=== PATIENT | male | born 1945 | race Caucasian/White ===

== ENCOUNTER 2022-08-09 06:43 | Emergency (ER) | payer MEDICARE, MEDICAID, SELFPAY ==
--- NOTE | ~2022-08-09 | CT_ITS ---
EXAMINATION: CT lumbar spine wo con DATE: 08/09/2022 07:12 INDICATION: Fall last evening. Previous back surgery. TECHNIQUE: Computed tomography (CT) of the lumbar spine was performed without intravenous contrast. A utomated exposure control and iterative reconstruction technique were employed. Exam dose: 1523.24 m Gy-cm total exam DLP. COMPARISON: None FINDINGS: Status post lumbar laminectomy. No fracture or bone destruction. There is grade 1 anterolisthesis at L4-5 due to degenerative changes at the apophyseal joints. There is pars interarticularis defect on the left at L4. There is degenerative spurring throughout the lowe r thoracic and lumbar spine. Lumbar interspaces are relatively preserved. The sacroiliac joints are intact.. IMPRESSION: Status post lumbar laminectomy Degenerative spurring of the lower thoracic and lumbar spine. Degenerative changes apophyseal joints with associated grade 1 anterolisthesis at L4-5. Left L4 pars intra-articular is defect No recent fracture is detected Reviewed, dictated and finalized at [facility] Reviewed, dictated and finalized at [facility]. TEGIC BU[employer]ER
[2022-08-09 06:45] VITALS: BP 117/57; PULSE 60; RESP 18; TEMP 36.5; O2SAT 97
--- NOTE | 2022-08-09 06:58 | ED.BACK ---
HPI - Back Pain/Injury General Chief Complaint: Back Pain/Injury Stated Complaint: back pain Time Seen by Provider: 08/09/22 06:57 Source: patient and RN notes reviewed Mode of arrival: ambulatory Limitations: no limitations History of Present Illness HPI Narrative: patient states he got up in the middle the night and tripped over the shoes that were nares bed falling onto his buttocks. He has pain in the right side of his back and his lumbar spine. He has a history of some previous surgery due to bulging discs. He did not take anything at home for his pain. MD elicited complaint: back injury Pertinent past history: prior back pain, recent trauma and back surgery Onset (ago): hour(s) (7) Timing: constant Severity: moderate Quality: dull and aching Location: lumbar spine Radiation: other (right hip) Exacerbating factors: movement and walking Relieving factors: other (rest) Context: fall Associated symptoms: denies other symptoms Work related injury: No Related Data Home Medications Medication Instructions Recorded Confirmed carbidopa 25 mg-levodopa 100 mg 1 tablet PO QID 08/09/22 08/09/22 tablet carbidopa ER 50 mg-levodopa 200 mg See Rx Instructions .Route .COMPLEX 08/09/22 08/09/22 tablet,extended release carvedilol 6.25 mg tablet 6.25 mg PO BID 08/09/22 08/09/22 celecoxib 200 mg capsule 200 mg PO DAILY 08/09/22 08/09/22 gabapentin 600 mg tablet 600 mg PO TID 08/09/22 08/09/22 glipizide 10 mg tablet, extended 10 mg PO DAILY 08/09/22 08/09/22 release 24 hr lisinopril 10 mg tablet 10 mg PO DAILY 08/09/22 08/09/22 metformin 1,000 mg tablet 1,000 mg PO BID 08/09/22 08/09/22 trazodone 50 mg tablet 50 mg PO HS 08/09/22 08/09/22 Allergies Allergy/AdvReac Type Severity Reaction Status Date / Time No Known Allergies Allergy Verified 08/09/22 06:58 Review of Systems Review of Systems: All systems reviewed & are unremarkable except as noted in HPI and below PMFSH Past Medical History Medical History (Updated 08/09/22 @ 08:47 by Marc Granados MD) Diabetes type 2, controlled Hypertension Parkinson's disease Social History Social History (Updated 08/09/22 @ 07:05 by Marc Granados MD) Smoking status: Former smoker Additional smoking assessment comments: quit 35 years ago Exam Const: General: healthy appearing, no acute distress and alert Nutritional Appearance: well nourished and obese morbidly obese Orientation/consciousness: patient oriented x3 Limitations: no limitations HENMT: Head: normal to inspection Ears: external ears normal Face/Nose/Sinus: Normal external nose present Face and sinus: normal facial exam Eyes: Conjunctivae: conjunctivae normal Pupils: Equal, round and reactive pupils present EOM: EOMs intact bilaterally Neck: Neck: normal visual inspection Resp: Effort & Inspection: normal respiratory effort Auscultation: clear to auscultation bilaterally Cardio: Rate: regular rate Rhythm: regular rhythm GI: GI Palp: Yes Soft to palpation and No Tenderness to palpation present (GI) Auscultation: normal bowel sounds Back/Spine/Pelvis: Cervical Spine: cervical ROM normal Thoracic/Lumbar Spine: pain with thoraco-lumbar ROM, paraspinal muscle tenderness on the right in the lower lumbar and lumbar spinal tenderness (Mild) at L3 and at L4 Skin: General skin exam: normal color Rashes: no rashes Neuro: General: patient oriented x3, moves all extremities, no focal motor deficits and CN's II-XI intact bilaterally Speech: normal speech Gait exam (Neuro): Normal gait present Extrem: General: normal to inspection and no clubbing, cyanosis or edema Psych: Mental Status: mental status grossly normal Affect: normal affect Attitude: cooperative Course Vital Signs Vital signs: Vital Signs Temperature 36.5 C 08/09/22 06:45 Pulse Rate 60 08/09/22 06:45 Respiratory Rate 18 08/09/22 06:45 Blood Pressure 117/57 L 08/09/22 06:45 Pulse Oximetry 97 08/09/22 06:45 O
[2022-08-09] MEDS: KETOROLAC 30 MG/ML VIAL (*BKC) IM (07:17)
[2022-08-09 08:40] VITALS: BP 123/78; PULSE 60; RESP 16; TEMP 36.7; O2SAT 99
== END 2022-08-09 08:50 | disposition home or self-care (01) ==
PROVIDERS: Emergency Provider Emergency Medicine; PCP Physician Assistant
DX: S39.012A Strain of muscle, fascia and tendon of lower back, initial encounter (principal); W01.0XXA Fall on same level from slipping, tripping and stumbling without subsequent striking against object, initial encounter; E11.9 Type 2 diabetes mellitus without complications; I10 Essential (primary) hypertension; G20 Parkinson's disease; Z87.891 Personal history of nicotine dependence
CPT/HCPCS: 72131; 96372; 99284; J1885

== ENCOUNTER 2023-05-04 20:07 | Emergency (ER) | payer MEDICARE, MEDICAID, SELFPAY ==
[2023-05-04 20:14] VITALS: BP 112/55; PULSE 80; RESP 16; TEMP 36.7; O2SAT 95
--- NOTE | 2023-05-04 20:39 | ED.RECABL ---
HPI - Recheck/Abnormal Lab/Rx General Chief Complaint: Recheck/Abnormal Lab/Rx Stated Complaint: Lab Draw Time Seen by Provider: 05/04/23 20:25 Source: patient and family Mode of arrival: ambulatory Limitations: no limitations History of Present Illness HPI narrative: patient is a 77-year-old male with known abnormal labs today. Patient was getting preop labs done and there were abnormal values that need to be rechecked and evaluated in the emergency room per the primary doctor. Initial visit (ago): hour(s) Symptoms since prior visit: no new symptoms Associated symptoms: none Related Data Home Medications Medication Instructions Recorded Confirmed carbidopa 25 mg-levodopa 100 mg 1 tablet PO QID 08/09/22 05/04/23 tablet carbidopa ER 50 mg-levodopa 200 mg See Rx Instructions .Route .COMPLEX 08/09/22 05/04/23 tablet,extended release carvedilol 6.25 mg tablet 6.25 mg PO BID 08/09/22 05/04/23 celecoxib 200 mg capsule 200 mg PO DAILY 08/09/22 05/04/23 gabapentin 600 mg tablet 600 mg PO TID 08/09/22 05/04/23 glipizide 10 mg tablet, extended 10 mg PO DAILY 08/09/22 05/04/23 release 24 hr lisinopril 10 mg tablet 10 mg PO DAILY 08/09/22 05/04/23 metformin 1,000 mg tablet 1,000 mg PO BID 08/09/22 05/04/23 trazodone 50 mg tablet 50 mg PO HS 08/09/22 05/04/23 aspirin 81 mg tablet,delayed 81 mg PO DAILY 02/25/23 05/04/23 release (Raiza Low Dose Aspirin) empagliflozin 10 mg tablet 10 mg PO DAILY 02/25/23 05/04/23 (Jardiance) furosemide 40 mg tablet 40 mg PO QAM 02/25/23 05/04/23 pravastatin 80 mg tablet 80 mg PO DAILY 02/25/23 05/04/23 ropinirole 1 mg tablet 1 mg PO BID 02/25/23 05/04/23 spironolactone 25 mg tablet 25 mg PO DAILY 02/25/23 05/04/23 Allergies Allergy/AdvReac Type Severity Reaction Status Date / Time No Known Allergies Allergy Verified 08/09/22 06:58 Review of Systems Review of Systems: All systems reviewed & are unremarkable except as noted in HPI and below Constitutional: Constitutional: Reports no additional constitutional complaints Eyes: Eyes: Reports no additional eye complaints ENT: Reports system reviewed and no additional complaints, except as documented Cardiovascular: Cardiovascular: Reports no additional cardiovascular complaints Respiratory: Respiratory: Reports no additional respiratory complaints Gastrointestinal: Gastrointestinal: Reports no additional gastrointestinal complaints Genitourinary: Genitourinary: Reports no additional male genitourinary complaints Musculoskeletal: Musculoskeletal: Reports no additional musculoskeletal complaints Integumentary/Breasts: Skin/Breast: Reports system reviewed and no additional complaints, except as docu Neurologic: Reports system reviewed and no additional complaints, except as documented Psychiatric: Psychiatric: Reports no additional psychiatric complaints Endocrine: Endocrine: Reports no additional endocrine complaints Hematologic/Lymphatic: Hematologic/Lymphatic: Reports no additional hematologic/lymphatic complaints Allergic/Immunologic: Allergic/Immunologic: Reports no additional allergic/immunologic complaints PMFSH Past Medical History Medical History Diabetes type 2, controlled Hypertension Lumbar radiculopathy Parkinson's disease Surgical History Surgical History Previous back surgery S/P triple vessel bypass Total knee replacement status Family History Family History Father Hypertension Heart disease Sibling Heart disease Hypertension Social History Social History Social History: Kale is not confident in filling out medical forms, his daughter filled them out for him. In the last 12 months, Kale has received assistance paying utility bills. Kale does not have an advanced directive or living w
--- NOTE | 2023-05-04 20:39 | PC.NURSE ---
2038-MANUFACTURING AREA MANAGER PRESENT AT BEDSIDE TO PERFORM LAB DRAW
[2023-05-04 20:49] LABS: Basophils Absolute Auto 0.07 K/mm3 (0.00-0.10); Basophils Percent Auto 0.7 % (0.0-1.0); Eosinophils Absolute Auto 0.12 K/mm3 (0.02-0.50); Eosinophils Percent Auto 1.2 % (1.0-6.0); Hematocrit 39.8 % (37.0-46.0); Immature Granulocyte Absolute 0.04 K/mm3 (0.00-0.00); Immature Granulocyte Percent A 0.4 % (0.0-0.0); Immature Platelet Fraction Pct 2.7 % (1.0-7.0); Lymphocytes Absolute Auto 2.86 K/mm3 (1.10-4.50); Lymphocytes Percent Auto 28.7 % (18.0-42.0); Mean Corpuscular HGB Conc 32.7 g/dL (32.0-36.0); Mean Corpuscular Hemoglobin 30.1 pg (27.0-31.0); Mean Corpuscular Volume 92.1 fL (78.0-102.0); Mean Platelet Volume 9.6 fl (8.7-11.0); Monocytes Absolute Auto 0.95 K/mm3 (0.10-0.90); Monocytes Percent Auto 9.5 % (2.0-11.0); Neutrophils Absolute Auto 5.9 K/mm3 (1.7-7.2); Neutrophils Percent Auto 59.5 % (50.0-70.0); Platelet Count Result 149 K/mm3 (150-420); Red Blood Count 4.32 M/mm3 (4.70-6.10); Red Cell Distribution Width 13.2 % (11.6-14.4)
[2023-05-04 21:03] LABS: Alanine Aminotransferase 11 U/L (16-63); Albumin Level 3.8 g/dL (3.4-5.0); Alkaline Phosphatase 126 U/L (46-116); Anion Gap 10 mmol/L (8-16); Aspartate Amino Transferase 16 U/L (15-37); Bilirubin,Total 0.7 mg/dL (0.00-1.00); Blood Urea Nitrogen 37 mg/dL (7-18); Carbon Dioxide 28 mmol/L (21-32); Chloride 101 mmol/L (98-108); Estimated CRCL calculation 36 ml/min; Estimated Glomerular Filt Rate 35; Glucose 95 mg/dL (70-99); Magnesium 1.6 mg/dL (1.8-2.4); Osmolality Calculated 296 mOsm/kg (285-295); Sodium 139 mmol/L (136-145)
[2023-05-04] MEDS: MAGNESIUM OXIDE 400 MG TABLET 800 MG PO (21:23)
[2023-05-04 21:30] VITALS: BP 99/54; PULSE 76; RESP 16; O2SAT 95
[2023-05-04] MEDS: SODIUM CHLORIDE 0.9% IV 1,000 ML 999 ML IV CONT (21:41)
[2023-05-04 21:45] VITALS: BP 104/64; PULSE 73; RESP 16; O2SAT 97
--- NOTE | 2023-05-04 21:57 | PC.NURSE ---
2130-PHYSICIAN AT BEDSIDE DISCUSSING RESULTS AND PLAN OF CARE WITH PT AND FAMILY. PHYSICIAN VERBAL ORDER TO CHANGE IVF AMOUNT FROM 1000CC TO 500CC DUE TO PT PMHX CHF.
== END 2023-05-04 22:23 | disposition home or self-care (01) ==
PROVIDERS: Emergency Provider Emergency Medicine
DX: N17.9 Acute kidney failure, unspecified (principal); E11.9 Type 2 diabetes mellitus without complications; I10 Essential (primary) hypertension; G20 Parkinson's disease; Z87.891 Personal history of nicotine dependence; Z79.82 Long term (current) use of aspirin; Z79.899 Other long term (current) drug therapy; Z79.84 Long term (current) use of oral hypoglycemic drugs
CPT/HCPCS: 36415; 80053; 83735; 85025; 85055; 96360; 99283; A9270; J7030

== ENCOUNTER 2023-05-06 12:31 | Outpatient (CLI) | payer MEDICARE, MEDICAID, SELFPAY ==
--- NOTE | ~2023-05-06 | XR_ITS ---
EXAMINATION: XR lumbar spine min 4V DATE: 05/06/2023 13:16 INDICATION: Lumbar pain and tenderness. Radiculopathy. TECHNIQUE: Standing AP and 3 lateral views in neutral, flexion and extension were obtained of the lum bar spine. COMPARISON: 08/09/2022 FINDINGS: L2-L5 laminectomies. 2-3 mm retrolisthesis L2 on L3 which remains unchanged with flexion and extensio n. 8 mm anterolisthesis L4 on L5 which is unchanged with flexion. Visualization of the posterior rehana in of the vertebral bodies is poor on the lateral extension view however the anterolisthesis of L4 on L5 subjectively appears to partially reduce. Vertebral body heights are normal. Mild disc height los s at L2-L3, L4-L5 and L5-S1. IMPRESSION: 1. Mild lumbar spondylosis with change of L2-L5 laminectomies. 2. 8 mm anterolisthesis L4 on L5 which is unchanged with flexion but which appears to partially reduc e with extension. Reviewed, dictated and finalized at [facility]. IMPRESSION: 1. Mild lumbar spondylosis with change of L2-L5 laminectomies. 2. 8 mm anterolisthesis L4 on L5 which is unchanged with flexion but which appe ars to partially reduce with extension.
== END 2023-05-06 12:32 | disposition home or self-care (01) ==
PROVIDERS: PCP Neurological Surgery; Visit Provider Neurological Surgery
DX: M47.26 Other spondylosis with radiculopathy, lumbar region (principal); M96.1 Postlaminectomy syndrome, not elsewhere classified
CPT/HCPCS: 72110

== ENCOUNTER 2023-08-27 18:37 | Emergency (ER) | payer MEDICARE, MEDICAID, SELFPAY ==
[2023-08-27] VITALS (23 sets, daily range): BP systolic 70–100; BP diastolic 40–55; PULSE 65–77; RESP 12–22; TEMP 36.2; O2SAT 95–100
--- NOTE | 2023-08-27 18:56 | ED.WEAKNESS ---
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 He has been feeling weak and dizzy. He checked his blood pressure home with 60s over 40s. Denies any chest pain or shortness of breath. Denies any urinary symptoms. Denies any nausea vomiting. The dizziness or lightheadedness only happens when he is standing up. On arrival his blood pressure here is improved 81/54. He says this happened in the past and he stopped his lisinopril for a few days and his blood pressure came back to normal. He is taking the lisinopril again. MD Complaint: generalized weakness (low BP at home 60s over 40s) Onset (ago): day(s) (1) Duration: intermittent Location: generalized Migration: none Severity: moderate Quality: dull Relieving factors: none Exacerbating factors: none Associated symptoms: other (dizzyness) Related Data Home Medications Medication Instructions Recorded Confirmed carbidopa 25 mg-levodopa 100 mg 1 tablet PO QID 08/09/22 08/27/23 tablet carbidopa ER 50 mg-levodopa 200 mg See Rx Instructions .Route .COMPLEX 08/09/22 08/27/23 tablet,extended release carvedilol 6.25 mg tablet 6.25 mg PO BID 08/09/22 08/27/23 celecoxib 200 mg capsule 200 mg PO DAILY 08/09/22 08/27/23 gabapentin 600 mg tablet 600 mg PO TID 08/09/22 08/27/23 glipizide 10 mg tablet, extended 10 mg PO DAILY 08/09/22 08/27/23 release 24 hr lisinopril 10 mg tablet 10 mg PO DAILY 08/09/22 08/27/23 metformin 1,000 mg tablet 1,000 mg PO BID 08/09/22 08/27/23 trazodone 50 mg tablet 50 mg PO HS 08/09/22 08/27/23 aspirin 81 mg tablet,delayed 81 mg PO DAILY 02/25/23 08/27/23 release (Raiza Low Dose Aspirin) empagliflozin 10 mg tablet 10 mg PO DAILY 02/25/23 08/27/23 (Jardiance) furosemide 40 mg tablet 40 mg PO QAM 02/25/23 08/27/23 pravastatin 80 mg tablet 80 mg PO DAILY 02/25/23 08/27/23 ropinirole 1 mg tablet 1 mg PO BID 02/25/23 08/27/23 spironolactone 25 mg tablet 25 mg PO DAILY 02/25/23 08/27/23 Allergies Allergy/AdvReac Type Severity Reaction Status Date / Time No Known Allergies Allergy Verified 08/09/22 06:58 Review of Systems Review of Systems: All systems reviewed & are unremarkable except as noted in HPI and below PMFSH Past Medical History Medical History (Updated 08/27/23 @ 19:40 by Marc Granados MD) Diabetes type 2, controlled Hypertension Lumbar radiculopathy Parkinson's disease Surgical History Surgical History (Updated 08/27/23 @ 18:59 by Marc Granados MD) H/O brain surgery Parkinson's stimulator Previous back surgery S/P triple vessel bypass Total knee replacement status Family History Family History Father Hypertension Heart disease Sibling Heart disease Hypertension Social History Social History Social History: Kale is somewhat confident in filling out medical forms, his daughter filled them out for him. In the last 12 months, Kale has received assistance paying utility bills. Kale does not have an advanced directive or living will. Kale awakens 1 to 2 times a night to urinate. He claims to have difficulty getting or maintaining an erection. Has not had a PSA blood test. Has not had an over 50 prostate exam. Kale declines currently using recreational or street drugs. Declines ever giving himself street drugs with a needle. Does not eat healthy or exercise regularly. Kale is over the age of 66 and experiences frequent falls. Declines being sexually active. Declines fearing for his life or having a history of abuse. Kale drinks 1 cup of coffee a day, 2-3 glasses of tea a day, and 1 can of
--- NOTE | 2023-08-27 19:12 | PC.NURSE ---
report to ragini carreno . all questions answered.
[2023-08-27 19:15] LABS: Basophils Absolute Auto 0.11 K/mm3 (0.00-0.10); Basophils Percent Auto 0.8 % (0.0-1.0); Eosinophils Absolute Auto 0.09 K/mm3 (0.02-0.50); Eosinophils Percent Auto 0.7 % (1.0-6.0); Hematocrit 39.8 % (37.0-46.0); Hemoglobin 13.1 g/dL (12.4-15.3); Immature Granulocyte Absolute 0.08 K/mm3 (0.00-0.00); Immature Granulocyte Percent A 0.6 % (0.0-0.0); Lymphocytes Absolute Auto 3.08 K/mm3 (1.10-4.50); Lymphocytes Percent Auto 22.7 % (18.0-42.0); Mean Corpuscular HGB Conc 32.9 g/dL (32.0-36.0); Mean Corpuscular Hemoglobin 29.7 pg (27.0-31.0); Mean Corpuscular Volume 90.2 fL (78.0-102.0); Mean Platelet Volume 9.6 fl (8.7-11.0); Monocytes Absolute Auto 1.18 K/mm3 (0.10-0.90); Monocytes Percent Auto 8.7 % (2.0-11.0); Neutrophils Percent Auto 66.5 % (50.0-70.0); Platelet Count Result 159 K/mm3 (150-420); Red Blood Count 4.41 M/mm3 (4.70-6.10); Red Cell Distribution Width 13.7 % (11.6-14.4); White Blood Count 13.6 K/mm3 (4.8-10.8)
[2023-08-27 19:30] LABS: Alanine Aminotransferase 11 U/L (16-63); Albumin Level 3.6 g/dL (3.4-5.0); Alkaline Phosphatase 127 U/L (46-116); Anion Gap 9 mmol/L (8-16); Aspartate Amino Transferase 17 U/L (15-37); Bilirubin,Total 0.7 mg/dL (0.00-1.00); Blood Urea Nitrogen 32 mg/dL (7-18); CRP 0.5 mg/dL (0.0-0.9); Calcium 8.8 mg/dL (8.5-10.1); Carbon Dioxide 30 mmol/L (21-32); Chloride 97 mmol/L (98-108); Estimated CRCL calculation 29 ml/min; Estimated Glomerular Filt Rate 28; Glucose 76 mg/dL (70-99); Osmolality Calculated 287 mOsm/kg (285-295); Potassium 4.4 mmol/L (3.5-5.1); Sodium 136 mmol/L (136-145); Total Protein 7.5 g/dL (6.4-8.2)
[2023-08-27] MEDS: SODIUM CHLORIDE 0.9% IV 1,000 ML 999 ML IV CONT (19:41)
== END 2023-08-27 20:55 | disposition home or self-care (01) ==
PROVIDERS: Emergency Provider Emergency Medicine; PCP Physician Assistant
DX: N28.9 Disorder of kidney and ureter, unspecified (principal); I95.2 Hypotension due to drugs; T46.4X5A Adverse effect of angiotensin-converting-enzyme inhibitors, initial encounter; E11.9 Type 2 diabetes mellitus without complications; I10 Essential (primary) hypertension; G20.A1 Parkinson's disease without dyskinesia, without mention of fluctuations; Z87.891 Personal history of nicotine dependence; Z79.899 Other long term (current) drug therapy; Z79.84 Long term (current) use of oral hypoglycemic drugs; Z79.82 Long term (current) use of aspirin
CPT/HCPCS: 36415; 80053; 83735; 85025; 86140; 96360; 99284; J7030

== ENCOUNTER 2023-11-23 17:12 | Emergency (ER) | payer MEDICARE, MEDICAID, SELFPAY ==
[2023-11-23 17:14] VITALS: BP 125/69; PULSE 77; RESP 19; TEMP 36.6; O2SAT 98
--- NOTE | 2023-11-23 17:22 | ECG_ITS ---
Measurements Intervals [place] Rate: 75 P: 95 ND: 251 QRS: 213 QRSD: 105 T: 32 QT: 377 QTc: 422 Interpretive Statements SIGNIFICANT BASELINE ARTIFACT. CANNOT DETERMINE RHTHM DUE TO ARTIFACT. NO PREVIOUS ECG AVAILABLE FOR COMPARISON Electronically Signed On 11-24-2023 15:54:28 SHREDDER OPERATOR by Quinten Ray M.D.
--- NOTE | 2023-11-23 17:26 | ED.GENADULT ---
HPI - General Adult General Chief complaint: Abdominal Pain Stated complaint: abd pain Time Seen by Provider: 11/23/23 17:21 History of Present Illness HPI narrative: Kale is a 78F with a PMH of HLD, hypertension, DMII, and Parkinson's disease that presented to the ED with epigastric pain. It started 3 days ago. It is worse after he eats and it is relieved with baking soda. There is no radiation, N/V, diarrhea or constipation. He had a BM today. No fevers, chest pain or dyspnea. He took baking soda before coming in and currently has no pain. Related Data Home Medications Medication Instructions Recorded Confirmed carbidopa 25 mg-levodopa 100 mg 1 tablet PO QID 08/09/22 11/23/23 tablet carbidopa ER 50 mg-levodopa 200 mg See Rx Instructions .Route .COMPLEX 08/09/22 11/23/23 tablet,extended release carvedilol 6.25 mg tablet 6.25 mg PO BID 08/09/22 11/23/23 celecoxib 200 mg capsule 200 mg PO DAILY 08/09/22 11/23/23 gabapentin 600 mg tablet 600 mg PO TID 08/09/22 11/23/23 glipizide 10 mg tablet, extended 10 mg PO DAILY 08/09/22 11/23/23 release 24 hr lisinopril 10 mg tablet 10 mg PO DAILY 08/09/22 11/23/23 metformin 1,000 mg tablet 1,000 mg PO BID 08/09/22 11/23/23 trazodone 50 mg tablet 50 mg PO HS 08/09/22 11/23/23 aspirin 81 mg tablet,delayed 81 mg PO DAILY 02/25/23 11/23/23 release (Raiza Low Dose Aspirin) furosemide 40 mg tablet 40 mg PO QAM 02/25/23 11/23/23 pravastatin 80 mg tablet 80 mg PO DAILY 02/25/23 11/23/23 ropinirole 1 mg tablet 1 mg PO BID 02/25/23 11/23/23 spironolactone 25 mg tablet 25 mg PO DAILY 02/25/23 11/23/23 empagliflozin 10 mg tablet 10 mg PO DAILY 11/23/23 11/23/23 (Jardiance) potassium chloride 20 mEq 20 meq PO DAILY 11/23/23 11/23/23 tablet,extended release(part/cryst) (Klor-Con M) Allergies Allergy/AdvReac Type Severity Reaction Status Date / Time No Known Allergies Allergy Verified 11/23/23 17:20 Review of Systems Review of Systems: All systems reviewed & are unremarkable except as noted in HPI and below PMFSH Past Medical History Medical History Diabetes type 2, controlled Hypertension Lumbar radiculopathy Parkinson's disease Surgical History Surgical History H/O brain surgery Parkinson's stimulator Previous back surgery S/P triple vessel bypass Total knee replacement status Family History Family History Father Hypertension Heart disease Sibling Heart disease Hypertension Social History Social History Social History: Kale is somewhat confident in filling out medical forms, his daughter filled them out for him. In the last 12 months, Kale has received assistance paying utility bills. Kale does not have an advanced directive or living will. Kale awakens 1 to 2 times a night to urinate. He claims to have difficulty getting or maintaining an erection. Has not had a PSA blood test. Has not had an over 50 prostate exam. Kale declines currently using recreational or street drugs. Declines ever giving himself street drugs with a needle. Does not eat healthy or exercise regularly. Kale is over the age of 66 and experiences frequent falls. Declines being sexually active. Declines fearing for his life or having a history of abuse. Kale drinks 1 cup of coffee a day, 2-3 glasses of tea a day, and 1 can of cola every 2-3 days. Kale has had a Flu Vaccine in 2021, Tetanus Vaccine in 2021, and Pneumonia Vaccine in 2021. Kale has not had a Dexa Scan or Adults over 20- Cholesterol. Smoking status: Former smoker Additional smoking assessment comments: quit 35 years ago Alcohol intake: current Alcohol use details: 2 bottles of beer every 3 months Substance use: never Substance use type: does not use Lack of Transportation: No Lack of Food: Sometimes True Curr
[2023-11-23 17:45] LABS: Basophils Absolute Auto 0.06 K/mm3 (0.00-0.10); Basophils Percent Auto 0.6 % (0.0-1.0); Eosinophils Absolute Auto 0.08 K/mm3 (0.02-0.50); Eosinophils Percent Auto 0.8 % (1.0-6.0); Hematocrit 40.8 % (37.0-46.0); Immature Granulocyte Absolute 0.04 K/mm3 (0.00-0.00); Immature Granulocyte Percent A 0.4 % (0.0-0.0); Lymphocytes Absolute Auto 3.11 K/mm3 (1.10-4.50); Lymphocytes Percent Auto 30.9 % (18.0-42.0); Mean Corpuscular HGB Conc 31.9 g/dL (32.0-36.0); Mean Corpuscular Hemoglobin 28.4 pg (27.0-31.0); Mean Corpuscular Volume 89.1 fL (78.0-102.0); Mean Platelet Volume 9.7 fl (8.7-11.0); Monocytes Absolute Auto 0.79 K/mm3 (0.10-0.90); Monocytes Percent Auto 7.8 % (2.0-11.0); Neutrophils Percent Auto 59.5 % (50.0-70.0); Platelet Count Result 147 K/mm3 (150-420); Red Blood Count 4.58 M/mm3 (4.70-6.10); Red Cell Distribution Width 13.5 % (11.6-14.4); White Blood Count 10.1 K/mm3 (4.8-10.8)
[2023-11-23 17:58] LABS: Prothrombin Time 11.3 Seconds (9.50-12.10)
[2023-11-23 18:08] LABS: Alanine Aminotransferase 16 U/L (16-63); Albumin Level 3.4 g/dL (3.4-5.0); Alkaline Phosphatase 83 U/L (46-116); Anion Gap 8 mmol/L (8-16); Aspartate Amino Transferase 18 U/L (15-37); Bilirubin,Total 0.6 mg/dL (0.00-1.00); Blood Urea Nitrogen 28 mg/dL (7-18); CRP 0.7 mg/dL (0.0-0.9); Calcium 8.7 mg/dL (8.5-10.1); Carbon Dioxide 33 mmol/L (21-32); Chloride 99 mmol/L (98-108); Estimated Glomerular Filt Rate 50; Glucose 107 mg/dL (70-99); Osmolality Calculated 295 mOsm/kg (285-295); Potassium 4.3 mmol/L (3.5-5.1); Sodium 140 mmol/L (136-145); Total Protein 7.3 g/dL (6.4-8.2); Troponin I 8.8 ng/L (0.00-60.4)
[2023-11-23 18:16] VITALS: BP 135/88; PULSE 80; RESP 18; TEMP 36.2; O2SAT 96
== END 2023-11-23 18:16 | disposition home or self-care (01) ==
PROVIDERS: Emergency Provider Family Medicine; PCP Physician Assistant
DX: K21.9 Gastro-esophageal reflux disease without esophagitis (principal); E78.5 Hyperlipidemia, unspecified; I10 Essential (primary) hypertension; E11.9 Type 2 diabetes mellitus without complications; G20.A1 Parkinson's disease without dyskinesia, without mention of fluctuations; Z79.899 Other long term (current) drug therapy; Z79.82 Long term (current) use of aspirin; Z79.84 Long term (current) use of oral hypoglycemic drugs; Z87.891 Personal history of nicotine dependence
CPT/HCPCS: 36415; 80053; 84484; 85025; 85610; 86140; 93005; 99283